=== PATIENT | male | born 1960 | race African-American/Black ===

== ENCOUNTER 2017-01-02 17:46 | Emergency (ER) | payer MEDICAID ==
[~2017-01-02] VITALS: Ht 167.6 cm; Wt 82.0 kg
[~2017-01-02 17:46] MED LIST: AMLO5TAB4 PO; FURO-152 PO; LANTUS; Lisinopril PO
[2017-01-02] MEDS ORDERED: HYDROCODONE/ACETAMINOPHEN 5/325MG TABLET PO ONE (22:45)
[2017-01-02 23:49] LABS: BASOPHILS % 0.6 % (0.0-2.0); EOSINOPHILS % 3.1 % (0.0-5.0); HEMATOCRIT. 42.5 % (42.0-52.0); HEMOGLOBIN. 14.9 g/dL (14.0-18.0); LYMPHOCYTES % 35.4 % (20.0-50.0); MEAN CORPUSCULAR HEMOGLOBIN 31.1 pg (28.0-32.0); MEAN CORPUSCULAR VOLUME 88.6 fL (80.0-94.0); MEAN PLATELET VOLUME 8.9 fl (7.4-10.4); MONOCYTES % 10.6 % (2.0-8.0); NEUTROPHILS % 50.3 % (40.0-76.0); PLATELET 234 x1000/uL (130-400); RED CELL DISTRIBUTION WIDTH 12.7 % (11.6-14.6)
[2017-01-02 23:54] LABS: CHLORIDE 90 mEq/L (98-107)
[2017-01-03] LABS: CLARITY URINE CLEAR (CLEAR); COLOR URINE YELLOW (YELLOW); GLUCOSE URINE 3+ (NEGATIVE); KETONES URINE TRACE (NEGATIVE); LEUKOCYTE ESTERASE URINE NEGATIVE (NEGATIVE); NITRITE URINE NEGATIVE (NEGATIVE); OCCULT BLOOD URINE NEGATIVE (NEGATIVE); PH URINE 5.5 (4.5-8.0); PROTEIN URINE NEGATIVE (NEGATIVE); SPECIFIC GRAVITY URINE 1.047 (1.005-1.030); UROBILINOGEN URINE 0.2 E.U./dL (0.2-1.0)
[2017-01-03 00:15] LABS: CARBON DIOXIDE 31 mEq/L (21-32)
[2017-01-03] MEDS ORDERED: SODIUM CHLORIDE 0.9% 1,000 ML IV STA (00:19)
[2017-01-03] MEDS ORDERED: SODIUM CHLORIDE 0.9% 1,000 ML IV ONE (01:58)
[2017-01-03] MEDS ORDERED: HYDROCODONE/ACETAMINOPHEN 5/325MG TABLET PO PRN (02:00)
[2017-01-03 02:10] VITALS: BP 151/91
== END 2017-01-03 03:55 | disposition home or self-care (01) ==
LOC: ER 22:41
DX: M54.12 Radiculopathy, cervical region (principal); R20.0 Anesthesia of skin; I11.0 Hypertensive heart disease with heart failure; I50.9 Heart failure, unspecified; E11.65 Type 2 diabetes mellitus with hyperglycemia
CPT/HCPCS: 36415; 70450; 72125; 80053; 81001; 82962; 85025; 96360; 96361; 99285; J7030; Z7610; 81003

== ENCOUNTER 2020-11-25 02:46 | Emergency (ER) | payer MEDICAID ==
[~2020-11-25] VITALS: Ht 167.6 cm; Wt 74.0 kg
[~2020-11-25 02:46] MED LIST changes: +AMLO10TA80 PO; +ASPI-1160 PO; +COR3 PO; +INSU100I24 SQ; -LANTUS; +LEVVL SUBCUT; +LIP40 PO; +LOSA50TA3 PO; -Lisinopril PO; +TERA2CAP4 PO
[2020-11-25 03:16] VITALS: BP 131/82
== END 2020-11-25 06:01 | disposition left against medical advice (07) ==
LOC: ER 02:46
DX: E11.9 Type 2 diabetes mellitus without complications (principal); Z79.4 Long term (current) use of insulin
CPT/HCPCS: 82962; 99281